=== PATIENT | male | born 1985 | race Caucasian/White ===

== ENCOUNTER 2019-03-28 15:58 | Outpatient (CLI) | payer OTHER ==
--- NOTE | 2019-03-29 14:13 | XRAY Report ---
Reason: PX IN L KNEE Procedure Date: 03/28/2019 Accession Number: [id number] / [id number] Procedure: XR - Knee 3 View LT CPT Code: Final Report FULL RESULT: EXAM: LEFT KNEE RADIOGRAPHY EXAM DATE: 03/28/2019 04:24 PM. CLINICAL HISTORY: Fall, left knee pain COMPARISON: None. TECHNIQUE: 3 views. FINDINGS: Bones: Variant anatomy with bipartite patella. No fractures or bone lesions. Joints: Normal. No effusion. No subluxations. Soft Tissues: Normal. No soft tissue swelling. IMPRESSION: Negative left knee radiography. [facility]
== END 2019-03-28 15:59 | disposition home or self-care (01) ==
LOC: DI 15:58
PROVIDERS: ATTEND Registered Nurse
DX: M25.562 Pain in left knee (principal)

== ENCOUNTER 2019-12-06 13:00 | Outpatient (CLI) | payer OTHER | END 2019-12-06 13:01 | disposition home or self-care (01) | LOC: COV 13:00 | PROVIDERS: ATTEND Family Medicine | DX: R05 Cough (principal); R53.83 Other fatigue; J02.9 Acute pharyngitis, unspecified ==